=== PATIENT | female | born 1955 | race African-American/Black ===

== ENCOUNTER 2016-10-13 12:22 | Emergency (ER) | payer MEDICARE, OTHER ==
[~2016-10-13] VITALS: Ht 160 cm; Wt 117.9 kg
[~2016-10-13 12:22] MED LIST: ACETAMINOPHEN-1 EAC1 ORAL; AMLODIPINE BESY10 MG PO; ASPIR-LOW81 MG PO; AZITHROMYCIN250 MG ORAL; DSS100 MG PO; ENDOCET 10-3251 EACH PO; FENTANYL1 EACH TDERMAL; GABAPENTIN100 MG ORAL; LIPITOR10 MG PO; LYRICA75 M1 ORAL; LYRICA75 M1 PO; MEDROL DOSEPAK4 MG ORAL; ONDANSETRON ODT4 MG ORAL; RESTORIL7.5 MG ORAL; TYLENOL #31 TAB PO; VALIUM10 MG PO
[2016-10-13 12:59] VITALS: BP 145/98
--- NOTE | 2016-10-13 13:26 | Emergency Room Report ---
History of Present Illness General Chief Complaint: General Complaint Present Illness HPI 61 YO Female presents to the ED C/O elevated bp reading earlier today while at dentist office prior to deep cleaning procedure. pt. explains that she was in a hurry and forgot to take her morning dose of benazepril, and she also gets very anxious at the dental office. Pt. denies KRAUS, blurry visions, changes in vision , ringing in the ears, N/V or recent trauma/fall. Denies CP, Palpitations, LOC, AMS, dizziness, Changes in Vision, Sensation, paresthesias, or a sudden severe headache. Allergies: Coded Allergies: No Known Allergies (Unverified , 05/10/12) Patient History Past Medical History: see triage record, HTN Past Surgical History: none Pertinent Family History: none Now: No Immunizations: UTD Reviewed Nursing Documentation: PMH: Agreed, PSxH: Agreed Nursing Documentation-PMH Hx Cardiac Problems: No - chronic pain upper extremities Hx Hypertension: Yes Hx Asthma: Yes Hx COPD: Yes Hx Cancer: No Hx Gastrointestinal Problems: Yes Review of Systems All Other Systems: negative except mentioned in HPI Physical Exam Vital Signs Date Time Temp Pulse Resp B/P Pulse Ox O2 Delivery O2 Flow Rate FiO2 10/13/16 12:59 98.4 74 20 145/98 98 Room Air Sp02 EP Interpretation: reviewed, normal General Appearance: no apparent distress, alert, GCS 15, non-toxic Head: normocephalic, atraumatic Eyes: bilateral eye PERRL, bilateral eye normal inspection ENT: hearing grossly normal, normal pharynx, no angioedema, normal voice Neck: full range of motion, supple/symm/no masses Respiratory: chest non-tender, lungs clear, normal breath sounds, speaking full sentences Cardiovascular #1: regular rate, rhythm, no edema, normal capillary refill Musculoskeletal: back normal, gait/station normal, normal range of motion, non- tender Neurologic: alert, oriented x3, responsive, motor strength/tone normal, sensory intact, speech normal Psychiatric: judgement/insight normal, memory normal, mood/affect normal Skin: normal color, no rash, warm/dry, well hydrated Medical Decision Making PA Attestation Dr. Rick is my supervising Physician whom patient management has been discussed with. Diagnostic Impression: Primary Impression: Elevated blood pressure reading in office with white coat syndrome, with diagnosis of hypertension ER Course Pt. presents to the ED C/O elevated bp reading earlier today while at dentist office prior to deep cleaning procedure. pt. explains that she was in a hurry and forgot to take her morning dose of benazepril, and she also gets very anxious at the dental office. Pt. denies KRAUS, blurry visions, changes in vision , ringing in the ears, N/V or recent trauma/fall. Denies CP, Palpitations, LOC, AMS, dizziness, Changes in Vision, Sensation, paresthesias, or a sudden severe headache. Ddx considered but are not limited to HTN Urgency/emergency, CVA/TIA, elevated BP, medication non-compliance, white-coat syndrome. Vital signs: are WNL, pt. is afebrile H&PE are most consistent with asymptomatic elevated BP reading prior to arrival. ORDERS: none required at this time, the diagnosis is clinical ED INTERVENTIONS: -d/w pt. follow up with PCP d/w pt. symptoms that would indicate prompts return to ED. At this time pt. is NAD, no KRAUS and BP is WNL. d/w pt. reasoning for not adjusting BP Medications at this time. recommended pt. to check regularly and keep a daily log. DISCHARGE: At this time pt. is stable for d/c to home. Will provide printed patient care instructions, and any necessary prescriptions. Care plan and follow up instructions have been discussed with the patient prior to discharge. Last Vital Signs Date Time Temp Pulse Resp B/P Pulse Ox O2 Delivery O2 Flow Rate FiO2 10/13/16 12:59 98.4 74 20 145/98 98 Room Air Disposition: HOME, SELF-CARE Condition: Stable Scripts Lorazepam* (ATIVAN*) 1 Mg Tablet 1 MG ORAL PRN Y for For Anxiety, #1 TAB Take Prior to dental procedure. Prov: Heidi Esquivel 10/13/16 Patient Instructions: Managing Your High Blood Pressure Additional Instructions: Take medications as directed. Follow up with PCP in 3-5 days , Keep a log of your daily BP readings. Return sooner to ED if new symptoms occur, or current symptoms become worse. Do not drink alcohol, drive, or operate heavy machinery while taking Ativan as this may cause drowsiness. - Please note that this Emergency Department Report was dictated using [employer] agent technology software, occasionally this can lead to erroneous entry secondary to interpretation by the dictation equipment. Heidi Esquivel October 13, 2016 13:26
[2016-10-13] MEDS ORDERED: ATIVAN1 MG ORAL (13:30)
[2016-10-13 13:50] VITALS: BP 145/98
== END 2016-10-13 13:50 | disposition home or self-care (01) ==
LOC: EMR 13:25
DX: J44.9 Chronic obstructive pulmonary disease, unspecified (principal); J45.909 Unspecified asthma, uncomplicated; I10 Essential (primary) hypertension; K92.9 Disease of digestive system, unspecified
CPT/HCPCS: 99283

== ENCOUNTER 2017-02-18 14:21 | Outpatient (CLI) | payer MEDICARE, MEDICAID ==
[~2017-02-18 14:21] MED LIST changes: +ATIVAN1 MG ORAL
--- NOTE | 2017-02-18 15:37 | Diagnostic Imaging Report ---
Indication: COUGH Technique: 2 views of the chest Comparison: none Findings: There is mild central bronchial wall thickening again demonstrated. Lungs and pleural spaces are otherwise clear. Heart size is normal. Aorta is somewhat tortuous. The bones are unremarkable except for mild degenerative thoracic spondylosis. No significant interim change Impression: No acute process. Findings as noted
== END 2017-02-18 16:21 | disposition home or self-care (01) ==
LOC: RAD 14:21
DX: R05 Cough (principal); M47.894 Other spondylosis, thoracic region
CPT/HCPCS: 71020

== ENCOUNTER 2018-02-08 11:32 | Inpatient (IN) | payer MEDICARE, MEDICAID ==
[~2018-02-08] VITALS: Ht 162.6 cm; Wt 92.5 kg
[2018-02-08] MEDS ORDERED: NUCYNTA100 MG PO (11:53)
[2018-02-08] MEDS ORDERED: ALL DAY ALLERGY10 M3 PO (11:53)
[2018-02-08] MEDS ORDERED: XOPENEX0.63 MG/3 HHN (11:54)
[2018-02-08 11:55] VITALS: BP 118/80
[2018-02-08] MEDS ORDERED: BREO ELLIPTA 21 EACH IH (11:55)
[2018-02-08] MEDS ORDERED: QUETIAPINE FUMA50 MG ORAL (11:55)
--- NOTE | 2018-02-08 12:10 | Emergency Room Report ---
History of Present Illness General Chief Complaint: General Complaint Source: Patient Present Illness HPI Patient presents after a fall 2 weeks ago with neck pain. Yesterday she also had exertional weakness and diaphoresis going to her doctor's office. From her doctor's office she was sent to [facility] by 911 and I was not seen for 3 hours. She left. She felt slightly better, however still has weakness. No chest pain. + Nausea, no vomit. No diarrhea. No dysuria. Chronic pain in her neck. Slightly worsened post fall. Allegedly PMD wants to get MRI of lower back. She wants to include neck as she has had some increased pain. Has bilat wrist pain as has carpal tunnel. Allegedly has had CHF in past. + anxiety. Has meds for this which she has been taking. Allergies: Coded Allergies: No Known Allergies (Unverified , 05/10/12) Patient History Past Medical History: see triage record Past Surgical History: other - fusion cervical Social History: Reports: smoking Social History Narrative at home Reviewed Nursing Documentation: PMH: Agreed; PSxH: Agreed Nursing Documentation-PMH Past Medical History: No History, Except For Hx Cardiac Problems: No - chronic pain Hx Hypertension: Yes - High cholesterol Hx Asthma: Yes Hx COPD: Yes Hx Cancer: No Hx Gastrointestinal Problems: Yes Review of Systems All Other Systems: negative except mentioned in HPI Physical Exam Vital Signs Date Time Temp Pulse Resp B/P (MAP) Pulse Ox O2 Delivery O2 Flow Rate FiO2 02/08/18 11:43 98.2 75 14 105/71 95 Room Air 98.2 Sp02 EP Interpretation: reviewed, normal General Appearance: well appearing, no apparent distress, GCS 15 Head: normocephalic Eyes: bilateral eye normal inspection, bilateral eye PERRL, bilateral eye EOMI ENT: moist mucus membranes Neck: supple, tender - laterally Respiratory: lungs clear, normal breath sounds Cardiovascular #1: regular rate, rhythm Cardiovascular #2: 2+ radial (R) Gastrointestinal: normal inspection, normal bowel sounds, non tender, no mass, non-distended Musculoskeletal: back normal, gait/station normal, normal range of motion Neurologic: alert, oriented x3, grossly normal - with chronic changes as reported Psychiatric: mood/affect normal, anxious Skin: normal inspection, warm/dry Medical Decision Making Diagnostic Impression: Primary Impression: Diaphoresis and Weakness - R/O ACS Additional Impressions: Fall Qualified Codes: W19.XXXA - Unspecified fall, initial encounter Polycythemia ER Course Patient presents with diaphoresis and weakness and dyspnea on exertion. Differential and includes acute coronary syndrome, acute myocardial infarction, pulmonary embolus, deconditioning, electrolyte imbalance, occult infection amongst others. Exam and VS against PE. Evaluation will be with EKG, chest x- ray and labs. The patient will be observed on a awake overnight monitor. EKG without acute injury. Chest x-ray with increased rose bilaterally. Labs with normal white count, elevated H/H. Neg BNP. Neg troponin. Complicated presentation. Needs cardiac observation and repeat troponin determination. Unclear etiology of chest radiographic abnormality. Discussed with Dr. Norton. He feels patient needs observation. Admit telemetry Dr. Norton. Laboratory Tests Test 02/08/18 12:10 White Blood Count 6.4 K/UL (4.8-10.8) Red Blood Count 6.08 M/UL (4.20-5.40) H Hemoglobin 15.6 G/DL (12.0-16.0) Hematocrit 50.7 % (37.0-47.0) H Mean Corpuscular Volume 83 FL (80-99) Mean Corpuscular Hemoglobin 25.7 PG (27.0-31.0) L Mean Corpuscular Hemoglobin Concent 30.9 G/DL (32.0-36.0) L Red Cell Distribution Width 12.9 % (11.6-14.8) Platelet Count 262 K/UL (150-450) Mean Platelet Volume 8.7 FL (6.5-10.1) Neutrophils (%) (Auto) 48.0 % (45.0-75.0) Lymphocytes (%) (Auto) 43.3 % (20.0-45.0) Monocytes (%) (Auto) 5.4 % (1.0-10.0) Eosinophils (%) (Auto) 1.6 % (0.0-3.0) Basophils (%) (Auto) 1.6 % (0.0-2.0) Prothrombin Time 10.6 SEC (9.30-11.50) Prothrombin Time INR 1.0 (0.9-1.1) PTT 27 SEC (23-33) Urine Color Pale yellow Urine Appearance Slightly cloudy Urine pH 5 (4.5-8.0) Urine Specific [place] 1.015 (1.005-1.035) Urine Protein Negative (NEGATIVE) Urine Glucose (UA) 4+ (NEGATIVE) H Urine Ketones Negative (NEGATIVE) Urine Blood Negative (NEGATIVE) Urine Nitrite Negative (NEGATIVE) Urine Bilirubin Negative (NEGATIVE) Urine Urobilinogen Normal MG/DL (0.0-1.0) Urine Leukocyte Esterase Negative (NEGATIVE) Urine RBC 0 /HPF (0 - 2) Urine WBC 0-2 /HPF (0 - 2) Urine Squamous Epithelial Cells Few /LPF (NONE/OCC) Urine Bacteria Occasional /HPF (NONE) Sodium Level 142 MMOL/L (136-145) Potassium Level 4.4 MMOL/L (3.5-5.1) Chloride Level 108 MMOL/L (98-107) H Carbon Dioxide Level 25 MMOL/L (21-32) Anion Gap 10 mmol/L (5-15) Blood Urea Nitrogen 8 mg/dL (7-18) Creatinine 0.9 MG/DL (0.55-1.30) Estimate Glomerular Filtration Rate > 60 mL/min (>60) Glucose Level 98 MG/DL (74-106) Calcium Level 9.6 MG/DL (8.5-10.1) Total Bilirubin 0.7 MG/DL (0.2-1.0) Aspartate Amino Transferase (AST) 24 U/L (15-37) Alanine Aminotransferase (ALT) 34 U/L (12-78) Alkaline Phosphatase 93 U/L (46-116) Total Creatine Kinase 123 U/L (26-308) Troponin I 0.017 ng/mL (0.000-0.056) Pro-B-Type Natriuretic Peptide 21 pg/mL (0-125) Total Protein 7.7 G/DL (6.4-8.2) Albumin 3.8 G/DL (3.4-5.0) Globulin 3.9 g/dL Albumin/Globulin Ratio 1.0 (1.0-2.7) Lipase 127 U/L (73-393) Urine Opiates Screen Negative (NEGATIVE) Urine Barbiturates Screen Negative (NEGATIVE) Phencyclidine (PCP) Screen Negative (NEGATIVE) Urine Amphetamines Screen Negative (NEGATIVE) Urine Benzodiazepines Screen Positive (NEGATIVE) H Urine Cocaine Screen Negative (NEGATIVE) Urine Marijuana (THC) Screen Negative (NEGATIVE) EKG Diagnostic Results Rate: normal Rhythm: NSR ST Segments: no acute changes - R axis Rhythm Strip Diag. Results EP Interpretation: yes Rhythm: NSR, no PVC's, no ectopy Chest X-Ray Diagnostic Results Chest X-Ray Diagnostic Results : Chest X-Ray Ordered: Yes # of Views/Limited/Complete: 1 View Indication: Shortness of Breath EP Interpretation: Yes Interpretation: no effusion, no pneumothorax, other - possible CHF Impression: Other Electronically Signed by: Electronically signed by Laron Rick MD Last Vital Signs Date Time Temp Pulse Resp B/P (MAP) Pulse Ox O2 Delivery O2 Flow Rate FiO2 02/08/18 21:00 Room Air 02/08/18 20:00 98.5 67 18 130/67 (88) 100 98.5 Status: improved Disposition: ADMITTED INPATIENT Condition: Serious Laron Rick M.D. Feb 08, 2018 12:10
[2018-02-08 12:32] LABS: APPEARANCE,URINE SLIGHTLY CLOUDY; BILIRUBIN, URINE NEGATIVE (NEGATIVE); COLOR,URINE PALE YELLOW; GLUCOSE, URINE (UA) 4+ (NEGATIVE); KETONES,URINE NEGATIVE (NEGATIVE); LEUKOCYTE ESTERASE ,URINE NEGATIVE (NEGATIVE); NITRITE,URINE NEGATIVE (NEGATIVE); PH,URINE 5 (4.5-8.0); PROTEIN,URINE NEGATIVE (NEGATIVE); UROBILINOGEN,URINE NORMAL MG/DL (0.0-1.0)
[2018-02-08 12:36] LABS: BASOPHILS % (AUTO) 1.6 % (0.0-2.0); EOSINOPHILS % (AUTO) 1.6 % (0.0-3.0); HEMATOCRIT 50.7 % (37.0-47.0); HEMOGLOBIN 15.6 G/DL (12.0-16.0); LYMPHOCYTES % (AUTO) 43.3 % (20.0-45.0); MEAN CORPUSCULAR VOLUME 83 FL (80-99); MONOCYTES % (AUTO) 5.4 % (1.0-10.0); PLATELET COUNT 262 K/UL (150-450); RED BLOOD COUNT 6.08 M/UL (4.20-5.40); RED CELL DISTRIBUTION WIDTH 12.9 % (11.6-14.8); WHITE BLOOD COUNT 6.4 K/UL (4.8-10.8)
[2018-02-08 12:40] LABS: ANION GAP 10 mmol/L (5-15); BLOOD UREA NITROGEN 8 mg/dL (7-18); CALCIUM 9.6 MG/DL (8.5-10.1); CARBON DIOXIDE 25 MMOL/L (21-32); CHLORIDE 108 MMOL/L (98-107); CREATININE 0.9 MG/DL (0.55-1.30); POTASSIUM 4.4 MMOL/L (3.5-5.1); SODIUM 142 MMOL/L (136-145)
[2018-02-08 12:51] LABS: ALANINE AMINOTRANSFERASE 34 U/L (12-78); ALBUMIN 3.8 G/DL (3.4-5.0); ALKALINE PHOSPHATASE 93 U/L (46-116); ASPARTATE AMINO TRANSFERASE 24 U/L (15-37); BILIRUBIN,TOTAL 0.7 MG/DL (0.2-1.0); CREATINE KINASE 123 U/L (26-308)
--- NOTE | 2018-02-08 12:54 | Diagnostic Imaging Report ---
. Indication: Chest pain Technique: One view of the chest Comparison: 02/18/2017 Findings: Body habitus limits evaluation. Inspiration is suboptimal. Increased opacity of both lung bases is likely related to the poor inspiration and overlapping soft tissue, but infiltrates cannot be completely excluded. Surgical hardware is seen in the cervical spine, not evident previously Impression: Possible bilateral basilar parenchymal disease, versus artifact. Correlate with clinical findings
[2018-02-08 13:49] VITALS: BP 114/71
[2018-02-08 16:07] VITALS: BP 138/81
[2018-02-08] MEDS ORDERED: Levalbuterol Inh UD 1.25mg/0.5ml HHN PRN (17:15)
[2018-02-08] MEDS ORDERED: Milk of Magnesia 30ml Ud ORAL PRN (17:15)
[2018-02-08 17:40] VITALS: BP 143/77
[2018-02-08] MEDS: Lyrica 75mg cap ORAL SCH ×2 (18:18→20:17)
[2018-02-08 20:00] VITALS: BP 130/67
[2018-02-08] MEDS: Heparin 5000 units/ml inj SUBQ SCH (20:19)
[2018-02-09] VITALS: BP 136/76
--- NOTE | 2018-02-09 02:30 | History and Physical Report ---
DATE OF ADMISSION: 02/08/2018 REASON FOR ADMISSION: Diffuse body pain, chest pain. HISTORY OF PRESENT ILLNESS: The patient is a 63-year-old female who apparently had a fall 2 weeks ago with associated neck pain. The patient also with significant weakness and diaphoresis. The patient apparently was sent to [facility], but due to long wait, the patient left. The patient with chronic pain and discomfort. The patient notes significant lower back pain and wrist pain due to multiple falls. The patient's care was discussed and reviewed with the doctor who felt that the patient should be admitted for further evaluation and intervention. The patient does have history of neck fusion sometime ago with a fairly stormy hospital course at that time. The patient was last seen by myself back in 08/2017. The patient noted that her asthma at that point was controlled. No other significant symptoms. The patient does have some radiculopathy, but otherwise, comfortable. The patient has had no head trauma at present. PAST MEDICAL HISTORY: Notable for COPD, hypercholesterolemia, chronic pain, diabetes, carpal tunnel, obstructive sleep apnea, on VPAP, CHF, cervical disk disease, hypertension, and lumbar radiculopathy. PAST SURGICAL HISTORY: Notable for cervical fusion as well as posterior spinal fusion back in 2017, bilateral carpal tunnel release, and ovarian cyst removal. FAMILY HISTORY: Notable for heart disease, pancreatitis, and diabetes. SOCIAL HISTORY: No children. The patient is a smoker for the past 40 years, half pack per day currently. Occasional alcohol use. REVIEW OF SYSTEMS: GENERAL: Failure to thrive, weakness, and fatigue. HEENT: Otherwise negative, but she does wear glasses. CARDIAC: With history of hypertensive heart disease and abnormal EKG. PULMONARY: With shortness of breath and COPD. GASTROINTESTINAL: No nausea or vomiting. No other symptoms. GENITOURINARY: No dysuria. MUSCULOSKELETAL: As above. SKIN: Itchy. PHYSICAL EXAMINATION: GENERAL: A well-developed female with diffuse overall body pain. VITAL SIGNS: The patient's vital signs reviewed and notable for blood pressure 114/71, pulse 63, respiratory rate 18, saturation 95%, and temperature 98.3 degrees. HEENT: Negative. Extraocular movements are grossly intact. NECK: Supple. LUNGS: Fairly clear and symmetric. No rhonchi or wheezes, but reduced. CARDIAC: S1 and S2. Regular rate and rhythm, slightly distant. No murmurs or rubs. Positive S4. ABDOMEN: Soft, nontender, and nondistended. EXTREMITIES: With mild edema. NEUROLOGIC: Decreased range of motion, weak overall. Some neuropathic findings. LABORATORY AND DIAGNOSTIC DATA: White count 6.4 and hematocrit 50.7. Sodium 142 and potassium 4.4. Electrolytes are otherwise negative. Troponin otherwise negative. Chest x-ray with possible parenchymal disease. IMPRESSION: 1. Diffuse body pain. 2. Significant radiculopathy. 3. Sleep apnea. 4. Chronic obstructive pulmonary disease per history. 5. Chronic debility. 6. Chest pain, possible acute coronary syndrome. 7. Hypercholesterolemia. RECOMMENDATIONS: Supportive care. Resume medications. Obtain MRI of the lumbosacral spine. Obtain PT evaluation. Monitor clinically for change. Serial troponin. If all negative, we will proceed with discharge planning with home health versus short-term rehabilitation. Christopher Norton M.D. DR: KAREEM JOB#: [id number] CC: ALIDA
[2018-02-09 07:29] LABS: BASOPHILS % (AUTO) 1.8 % (0.0-2.0); EOSINOPHILS % (AUTO) 1.4 % (0.0-3.0); HEMATOCRIT 51.2 % (37.0-47.0); HEMOGLOBIN 16.1 G/DL (12.0-16.0); LYMPHOCYTES % (AUTO) 40.8 % (20.0-45.0); MEAN CORPUSCULAR VOLUME 83 FL (80-99); MONOCYTES % (AUTO) 5.4 % (1.0-10.0); NEUTROPHILS % (AUTO) 50.6 % (45.0-75.0); PLATELET COUNT 240 K/UL (150-450); RED CELL DISTRIBUTION WIDTH 12.8 % (11.6-14.8); WHITE BLOOD COUNT 5.9 K/UL (4.8-10.8)
[2018-02-09 07:50] LABS: ANION GAP 10 mmol/L (5-15); BLOOD UREA NITROGEN 13 mg/dL (7-18); CALCIUM 9.1 MG/DL (8.5-10.1); CARBON DIOXIDE 24 MMOL/L (21-32); CHLORIDE 109 MMOL/L (98-107); CREATININE 0.7 MG/DL (0.55-1.30); POTASSIUM 3.8 MMOL/L (3.5-5.1); SODIUM 143 MMOL/L (136-145)
[2018-02-09 08:00] VITALS: BP 119/79
[2018-02-09 08:10] VITALS: BP 119/79
[2018-02-09] MEDS: Heparin 5000 units/ml inj SUBQ SCH (08:11)
[2018-02-09] MEDS ORDERED: Docusate 100mg cap ORAL SCH (09:00)
[2018-02-09] MEDS ORDERED: Breo Ellipta 200/25mcg-14 dose INH SCH (09:00)
[2018-02-09] MEDS ORDERED: Aspirin Baby 81mg ORAL SCH (09:00)
[2018-02-09] MEDS: Lyrica 75mg cap ORAL SCH (09:35)
--- NOTE | 2018-02-09 10:31 | Diagnostic Imaging Report ---
Indication: Back pain Technique: MRI examination of the lumbar spine was performed in a 1.5 Susanne magnet. Sequences obtained include sagittal and axial T1 and T2 fast spin echo, and sagittal STIR. Comparison: none Findings: Bone marrow signal and alignment are normal. The height and signal of the intervertebral discs are relatively well-maintained. There is no disc herniation identified. Multilevel facet arthropathy is present throughout the lumbar spine characterized by hypertrophy of the facets and ligamentum flavum. Conus medullaris and visualized part of the distal spinal cord appear normal. The conus medullaris is seen at T12. L1-2: Mild facet arthropathy noted. No significant central or neural foraminal stenosis. L2-3: Facet arthropathy demonstrated. Mild stenosis of the neural foramen noted bilaterally. No central stenosis. L3-4: Central and lateral recess stenosis demonstrated. Moderate to severe facet arthropathy demonstrated. Moderate to severe narrowing of the neural foramen demonstrated. L4-5: Narrowing of the central canal and lateral recess demonstrated. Mild to moderate foraminal stenosis demonstrated. L5-S1: No evidence of central or neural foraminal stenosis. Facet arthropathy is present. IMPRESSION: Degenerative disease involving the lumbar spine mainly characterized by facet arthropathy and ligamentum flavum redundancy. L4-5 with mild to moderate foraminal stenosis, central and lateral recess stenosis. L3-4 with moderate to severe bilateral foraminal stenosis with central and lateral recess stenosis. L2-3 mild stenosis of the neural foramen bilaterally.
--- NOTE | 2018-02-09 14:11 | General Progress Note ---
Assessment/Plan Assessment/Plan IMPRESSION: 1. Diffuse body pain. 2. Significant radiculopathy. 3. Sleep apnea. 4. Chronic obstructive pulmonary disease per history. 5. Chronic debility. 6. Chest pain, possible acute coronary syndrome. 7. Hypercholesterolemia. 8. spinal stenosis PLAN dc home stable pain meds follow up with spine and pain management continue same meds as is stable for dc impression, plan, and exam edited and reviewed in detail care discussed with RN Subjective Allergies: Coded Allergies: No Known Allergies (Unverified , 05/10/12) Subjective MRI Reviewed d/w patient wants to go home Objective Last 24 Hour Vital Signs Date Time Temp Pulse Resp B/P (MAP) Pulse Ox O2 Delivery O2 Flow Rate FiO2 02/09/18 10:34 97.5 02/09/18 09:35 97.5 02/09/18 08:53 Room Air 02/09/18 08:10 84 119/79 02/09/18 08:00 97.5 84 18 119/79 (92) 97 97.5 02/09/18 07:44 69 02/09/18 04:00 67 02/09/18 00:00 69 02/09/18 00:00 97.5 68 18 136/76 (96) 97 97.5 02/08/18 21:00 Room Air 02/08/18 20:00 98.5 67 18 130/67 (88) 100 98.5 02/08/18 20:00 71 02/08/18 17:45 Room Air 02/08/18 17:40 97.5 62 18 143/77 (99) 100 97.5 02/08/18 17:34 61 02/08/18 16:43 98.6 65 22 132/72 95 Room Air 98.4 02/08/18 16:07 98.4 65 20 138/81 97 Room Air 98.4 Intake and Output 02/08/18 02/09/18 19:00 07:00 Intake Total 250 ml Balance 250 ml Intake Oral 250 ml # Voids 2 Laboratory Tests 02/09/18 06:25: White Blood Count 5.9, Red Blood Count 6.20H, Hemoglobin 16.1H, Hematocrit 51.2H , Mean Corpuscular Volume 83, Mean Corpuscular Hemoglobin 26.0L, Mean Corpuscular Hemoglobin Concent 31.5L, Red Cell Distribution Width 12.8, Platelet Count 240, Mean Platelet Volume 9.2, Neutrophils (%) (Auto) 50.6, Lymphocytes (%) (Auto) 40.8, Monocytes (%) (Auto) 5.4, Eosinophils (%) (Auto) 1.4, Basophils (%) (Auto) 1.8, Sodium Level 143, Potassium Level 3.8, Chloride Level 109H, Carbon Dioxide Level 24, Anion Gap 10, Blood Urea Nitrogen 13, Creatinine 0.7, Estimat Glomerular Filtration Rate > 60, Glucose Level 93, Calcium Level 9.1, Troponin I 0.000 Height (Feet): 5 Height (Inches): 4.00 Weight (Pounds): 204 Objective GENERAL: A well-developed female improved HEENT: Negative. Extraocular movements are grossly intact. NECK: Supple. LUNGS: Fairly clear and symmetric. No rhonchi or wheezes, but reduced. CARDIAC: S1 and S2. Regular rate and rhythm, slightly distant. No murmurs or rubs. Positive S4. ABDOMEN: Soft, nontender, and nondistended. EXTREMITIES: With mild edema. NEUROLOGIC: Decreased range of motion, weak overall. Some neuropathic findings. Christopher Norton MD Feb 09, 2018 14:11
--- NOTE | 2018-02-09 16:58 | Cardiology Report ---
APPROVED REPORT EKG Measurement Heart [id number] Normal sinus rhythm Rightward axis Borderline ECG
--- NOTE | 2018-02-10 10:37 | Discharge Summary ---
Discharge Summary Discharge Summary _ DATE OF ADMISSION: 02/08/2018 DATE OF DISCHARGE: 02/09/2018 BRIEF HOSPITAL COURSE: Patient is a 63-year-old female, who apparently had a fall 2 weeks prior, with associated neck pain, significant weakness and diaphoresis. Patient apparently went to [facility], but due to long wait, patient left. Patient has significant lower back pain and wrist pain due to multiple falls. She has history of chronic pain status post neck fusion in the past. She has medical history significant for COPD, hypercholesterolemia, chronic pain, diabetes, carpal tunnel, obstructive sleep apnea, CHF, hypertension, cervical disc disease and lumbar radiculopathy. On evaluation at ED, vital signs were stable. EKG was without acute injury. Chest x-ray with possible bilateral basilar parenchymal disease. Blood work showed normal white count, troponin was 0.017 and BNP 21. She was admitted for evaluation of diffuse body pain. She was given supportive care. She was continued on home meds. MRI of the lumbosacral spine showed degenerative disease mainly characterized by facet arthropathy and ligamentum flavum redundancy. There was L3 to L4 moderate to severe bilateral foraminal stenosis with central and lateral recess stenosis and L4-L5 mild to moderate stenosis and L2-L3 mild stenosis. Patient wanted to sign out AMA. Workup was negative. Troponin normalized. Due to rapid improvement in patient's symptoms, patient was cleared for discharge home. To follow-up with spine and pain management. FINAL DIAGNOSES: Diffuse body pain with significant radiculopathy Sleep apnea COPD Chronic debility Chest pain, possible acute coronary syndrome Hypercholesterolemia Spinal stenosis DISPOSITION: Patient was discharged home. DISCHARGE MEDICATIONS: Refer to Discharge Medication List. DISCHARGE INSTRUCTIONS: Follow up with PCP in a week. I have been assigned to dictate discharge summary on this account, and I was not involved in the patient's management. Mary Scott NP Feb 10, 2018 10:37
== END 2018-02-09 11:35 | disposition home or self-care (01) | DRG 313 ==
LOC: EMR 13:10 → 2E 14:02 → EDBEDREQ 14:27
DX: R07.9 Chest pain, unspecified (principal); I24.9 Acute ischemic heart disease, unspecified; E11.9 Type 2 diabetes mellitus without complications; J44.9 Chronic obstructive pulmonary disease, unspecified; R53.81 Other malaise; E78.00 Pure hypercholesterolemia, unspecified; R29.6 Repeated falls; G47.33 Obstructive sleep apnea (adult) (pediatric); I11.0 Hypertensive heart disease with heart failure; M51.17 Intervertebral disc disorders with radiculopathy, lumbosacral region; M48.061 Spinal stenosis, lumbar region without neurogenic claudication; Z98.1 Arthrodesis status
CPT/HCPCS: 36415; 71045; 72148; 80048; 80053; 80307; 81003; 82550; 83690; 83880; 84484; 85025; 85610; 85730; 93005